=== PATIENT | male | born 2000 | race Caucasian/White ===

== ENCOUNTER 2025-07-04 15:31 | Emergency (ER) | payer OTHER ==
[~2025-07-04] VITALS: Ht 182.9 cm; Wt 83.9 kg
[2025-07-04] MEDS ORDERED: Adderall Xr 2020 MG PO ×2 (16:21→16:34)
[2025-07-04] MEDS ORDERED: Amphetamine Sal20 MG PO ×2 (16:21→16:34)
== END 2025-07-04 16:39 | disposition home or self-care (01) ==
LOC: ER 15:31
DX: Z76.0 Encounter for issue of repeat prescription (principal); Z79.899 Other long term (current) drug therapy
CPT/HCPCS: 99281